=== PATIENT | male | born 1995 | race Caucasian/White ===

== ENCOUNTER 2022-01-29 17:47 | Emergency (ER) | payer OTHER, SELFPAY ==
[2022-01-29 17:49] VITALS: BP 138/86; PULSE 86; RESP 15; TEMP 36.8; O2SAT 98; BMI 27.3
--- NOTE | 2022-01-29 18:12 | EX.ED.UPPERE ---
HPI History of Present Illness Chief Complaint: Laceration Detail of Chief Complaint: Laceration to left index finger Informant: patient Narrative Narrative: Patient presents with a laceration to his left index finger that occurred prior to arrival in the emergency department. Patient states that he was cutting something with a utility knife when the knife slipped and lacerated his finger. Patient is right-hand dominant. Patient's last tetanus shot was in 2013. Patient denies other complaints. [facility] Medical History (Updated 01/29/22 @ 18:[address] Roger Cochran, DO) Sprain of right thumb Allergy/AdvReac Type Severity Reaction Status Date / Time No Known Allergies Allergy Verified 01/29/22 17:49 Social History (Updated 05/08/20 @ 08:27 by Neno TELLEZ, PA) Smoking Status: Never smoker ROS ROS ED Review of Systems ROS Unobtainable: other Constitutional Constitutional ED: Reports lethargy; Denies chills, fever(s), sweats or weight loss Eyes Eyes: Denies blurry vision, change in vision or diplopia ENT ENT ED: Denies rhinorrhea or sore throat Cardiovascular Cardiovascular: Denies chest pain, orthopnea or racing heartbeat Respiratory/Chest Respiratory/Chest: Denies cough, dyspnea, dyspnea on exertion, orthopnea or sputum Gastrointestinal Gastrointestinal: Denies abdominal pain, diarrhea, nausea or vomiting Genitourinary Genitourinary ED: Denies dysuria, hematuria or urinary frequency Musculoskeletal Musculoskeletal: Denies arthralgias, back pain, myalgias or neck pain Integumentary Reports other Details: Left index finger laceration ; Denies abscess, Abrasions or rash Neurologic Neurologic: Denies headache(s) or weakness Psychiatric Psychiatric: Denies anxiety, depression or suicidal thoughts Endocrine Endocrinology: Denies polydipsia, polyphagia or polyuria Hematologic/Lymphatic Hematologic/Lymphatic: Denies easy bleeding, easy bruising or lymphadenopathy Allergic/Immunologic Allergic/Immunologic ED: Denies mouth swelling, tongue swelling or urticaria EXAM Physical Exam Const Vital Signs: 01/29/22 17:49 Temperature 98.2 F Temperature Source Temporal Pulse Rate 86 Respiratory Rate 15 Blood Pressure 138/86 H Blood Pressure Mean 103 Pulse Ox 98 Oxygen Delivery Method Room Air Positive well nourished and well developed General Appearance ED: well developed and NAD HEENT Reports TM's clear and moist mucous membranes normocephalic and atraumatic; Negative for trauma or tenderness Tympanic Membrane ED: Yes TM's clear Eyes PERRL and EOMs intact bilaterally General Eye ED: Negative for pale conjunctiva or scleral icterus Neck no lymphadenopathy, supple and no JVD General: Negative for tenderness Chest Wall inspection of chest normal and palpation of chest normal Chest: Negative for tenderness Resp normal respiratory effort and clear to auscultation bilaterally Effort and Inspection: Negative for respiratory distress or pain with movement Auscultation: Negative for rhonchi, wheezes or diminished lung sounds Cardio regular rate, regular rhythm, S1 normal heart sound, S2 normal heart sound and no murmurs Peripheral Pulses: pulses 2+ throughout GI normal to inspection, nondistended, normoactive bowel sounds, soft to palpation, non-tender, non-distended and no masses Back/Spine no CVA tenderness and no thoracic nor lumbar tenderness Extremity Extremity Narrative: Left index finger-patient has a 3 cm laceration involving the lateral aspect onto the volar surface of the middle phalanx and distal phalanx. Patient has normal range of motion flexion extension at the DIP and PIP joint. Neurovascular intact. Normal sensation. General Extremety ED: Negative for edema General Extremity: Negative for edema Neuro oriented x3, CN's II-XII intact bilaterally, no sensory deficits noted and gait normal Sensorium / Orientation: awake, alert, oriented to person, oriented to place and oriented to time Motor Exam: strength 5/5 throughout and strength abnormal Psych mental status grossly normal Skin no rashes or lesions noted and no wounds MDM MDM MDM Narrative Medical decision making narrative: Patient agreed to suture repair. A digital block was performed and wound was explored. There was no evidence of tendon involvement. Wound was irrigated with copious saline. Wound was closed with 5-0 nylon total of 4 single rapid sutures. Clean dressing applied and aluminum splint given. 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 Procedures Lacerations Finger laceration: Length: 1.18 in Depth: Sub Q Prep: Sterile Conditions and Shure-Clens Laceration repair: Digital block and Skin sutures Irrigated (ml): 100 Number of Sutures/Musa: 4 Suture Information: Ethilon, Simple and 5-0 Discharge Plan Triage Chief Complaint: Laceration ED Provider: Roger Cochran Dx/Rx/DC Orders Clinical Impression: Finger laceration Instructions: ED Laceration, Hand: All Closures Primary Care Provider: Care Physician,No Primary Referrals: Gianluca Garcia MD [Med Staff - Cafeteria Aide] - 10 Day for suture removal Care Physician,No Primary [Primary Care Provider] - Disposition Disposition: Home, Self Care
[2022-01-29] MEDS: Lidocaine 1% (20 ml mdv) 20 ML Vial 10 ML INFILT (18:40)
[2022-01-29] MEDS: Diphth,Pertuss(Acell),Tet Vac 0.5 ML Vial IM (18:40)
== END 2022-01-29 18:51 | disposition home or self-care (01) ==
LOC: ED 18:38
PROVIDERS: Emergency Provider Emergency Medicine; Visit Provider Emergency Medicine
DX: S61.211A Laceration without foreign body of left index finger without damage to nail, initial encounter (principal); W26.0XXA Contact with knife, initial encounter; Z23 Encounter for immunization
CPT/HCPCS: 12001; 90471; 99284